=== PATIENT | female | born 1975 | race African-American/Black ===

== ENCOUNTER 2018-07-22 21:27 | Emergency (ER) | payer BC ==
[~2018-07-22] VITALS: Ht 165.1 cm; Wt 77.1 kg
[2018-07-22 21:50] VITALS: BP 122/84
[2018-07-22] MEDS ORDERED: BENADRYL25 MG ORAL (22:00)
[2018-07-22] MEDS ORDERED: HYDROCORTISONE-30 GM TOPIC (22:00)
--- NOTE | 2018-07-22 22:01 | Emergency Room Report ---
History of Present Illness General Chief Complaint: Skin Rash/Abscess Source: Patient Present Illness HPI Is a 43-year-old female with no past medical history. She presents with chief complaint of bedbug bites. She went to a [employer]ism retreat on Friday in the next day woke up with bites on her body and head. Her daughter had the same problem. She is able to film some of the bugs. Itching in nature. Worse with scratching. No fever chills. no nausea no vomiting. No other complaint. No drainage Allergies: Coded Allergies: No Known Allergies (Unverified , 07/22/18) Patient History Past Medical History: none, see triage record, old chart reviewed Past Surgical History: none Pertinent Family History: none Social History: Denies: smoking Last Menstrual Period: 07/17/2018 Now: No : 3 Para: 2 Immunizations: other Reviewed Nursing Documentation: PMH: Agreed; PSxH: Agreed Nursing Documentation-PMH Past Medical History: No Stated History Review of Systems Eye: Denies: eye pain, blurred vision ENT: Denies: ear pain, nose congestion, throat swelling Respiratory: Denies: cough, shortness of breath Cardiovascular: Denies: chest pain, palpitations Gastrointestinal: Denies: abdominal pain, diarrhea, nausea, vomiting Musculoskeletal: Denies: back pain, joint pain Skin: Reports: rash Neurological: Denies: headache, numbness Endocrine: Denies: increased thirst, increased urine Hematologic/Lymphatic: Denies: easy bruising All Other Systems: negative except mentioned in HPI Physical Exam Vital Signs Date Time Temp Pulse Resp B/P (MAP) Pulse Ox O2 Delivery O2 Flow Rate FiO2 07/22/18 21:44 98.5 61 16 122/84 95 Room Air 98.4 vitals inder Sp02 EP Interpretation: reviewed, normal General Appearance: well appearing, no apparent distress, alert Head: normocephalic, atraumatic Eyes: bilateral eye PERRL, bilateral eye EOMI ENT: hearing grossly normal, normal pharynx Neck: full range of motion, supple, no meningismus Respiratory: chest non-tender, lungs clear, normal breath sounds Cardiovascular #1: regular rate, rhythm, no murmur Gastrointestinal: normal bowel sounds, non tender, no mass, no organomegaly, no bruit, non-distended Musculoskeletal: back normal, gait/station normal, normal range of motion Neurologic: alert, oriented x3 Psychiatric: mood/affect normal Skin: warm/dry, other - Scattered oval 1 cm rash mostly on arms and back of neck. No drainage. No fever. Medical Decision Making Diagnostic Impression: Primary Impression: Bedbug bite Qualified Codes: W57.XXXA - Bitten or stung by nonvenomous insect and other nonvenomous arthropods, initial encounter ER Course Patient with bedbug bites. No infection. No abscess. We'll discharge home. Last Vital Signs Date Time Temp Pulse Resp B/P (MAP) Pulse Ox O2 Delivery O2 Flow Rate FiO2 07/22/18 21:44 98.5 61 16 122/84 95 Room Air 98.4 Status: unchanged Disposition: HOME, SELF-CARE Condition: Stable Scripts Hydrocortisone/Aloe Vera 1%* (HYDROCORTISONE-ALOE 1% CREAM*) Y Cr 1 APPLIC TOPIC Q6H PRN for Itching, #30 GM Prov: Rishi Otero MD 07/22/18 Diphenhydramine Hcl* (BENADRYL*) 25 Mg Capsule 50 MG ORAL Q6H PRN for Itching, #30 CAP Prov: Rishi Otero MD 07/22/18 Additional Instructions: Follow-up with in 7 days. Return if worse. Rishi Otero MD Jul 22, 2018 22:01
[2018-07-22 22:10] VITALS: BP 122/84
== END 2018-07-22 22:10 | disposition home or self-care (01) ==
LOC: EMR 21:50
DX: S40.862A Insect bite (nonvenomous) of left upper arm, initial encounter (principal); S40.861A Insect bite (nonvenomous) of right upper arm, initial encounter; S20.469A Insect bite (nonvenomous) of unspecified back wall of thorax, initial encounter; S10.96XA Insect bite of unspecified part of neck, initial encounter; W57.XXXA Bitten or stung by nonvenomous insect and other nonvenomous arthropods, initial encounter; Y93.89 Activity, other specified; Y92.89 Other specified places as the place of occurrence of the external cause
CPT/HCPCS: 99283

== ENCOUNTER 2018-08-07 10:24 | Emergency (ER) | payer BC, OTHER ==
[~2018-08-07] VITALS: Ht 165.1 cm; Wt 77.1 kg
[~2018-08-07 10:24] MED LIST: BENADRYL25 MG ORAL; HYDROCORTISONE-30 GM TOPIC
[2018-08-07] MEDS ORDERED: NKM (10:30)
[2018-08-07 10:36] VITALS: BP 121/65
--- NOTE | 2018-08-07 11:42 | Emergency Room Report ---
History of Present Illness General Chief Complaint: Dyspnea/Respdistress Source: Patient Present Illness HPI 43-year-old female presents with cough which was initial we productive of green sputum now just clearish,'s for one week. She also reports facial pain, nasal discharge, again this is clears discharge, denies blurred vision fever, severe headaches, ear pain, sore throat Allergies: Coded Allergies: No Known Allergies (Unverified , 07/22/18) Patient History Past Medical History: see triage record Now: No Reviewed Nursing Documentation: PMH: Agreed; PSxH: Agreed Nursing Documentation-PMH Past Medical History: No Stated History Review of Systems Constitutional: Denies: fever Eye: Denies: acuity changes Respiratory: Denies: cough, shortness of breath Cardiovascular: Denies: chest pain Gastrointestinal: Denies: nausea, vomiting Skin: Denies: rash Neurological: Denies: headache Physical Exam Vital Signs Date Time Temp Pulse Resp B/P (MAP) Pulse Ox O2 Delivery O2 Flow Rate FiO2 08/07/18 10:36 77 18 Room Air 08/07/18 10:36 98.4 121/65 100 General Appearance: well appearing, no apparent distress Head: normocephalic, atraumatic Eyes: left eye PERRL, left eye EOMI ENT: normal ENT inspection, hearing grossly normal, normal pharynx, no angioedema, normal voice, uvula midline, moist mucus membranes, nasal congestion Neck: full range of motion, supple Respiratory: chest non-tender, lungs clear, normal breath sounds, no rhonchi, no respiratory distress, no retraction, no accessory muscle use, no wheezing, speaking full sentences Cardiovascular #1: normal peripheral pulses, regular rate, rhythm, no edema, no gallop, no murmur, no rub Gastrointestinal: non tender, soft, no mass Musculoskeletal: no calf tenderness Neurologic: alert, meat lugger III-XII nml as tested, motor strength/tone normal, sensory intact, normal gait Psychiatric: mood/affect normal Skin: no rash Medical Decision Making Diagnostic Impression: Primary Impression: Bronchitis ER Course Patient bronchitis or mild sinusitis, some spectrum upper respiratory infection , chest x-ray normal, examination also rather unremarkable with no boggy sinus tenderness, just mild clearish rhinorrhea, will discharge with prescription for Nasonex Chest X-Ray Diagnostic Results Chest X-Ray Diagnostic Results : Chest X-Ray Ordered: Yes # of Views/Limited/Complete: 2 View Indication: Other - cough EP Interpretation: Yes Interpretation: no consolidation, no effusion, no pneumothorax, no acute cardiopulmonary disease Impression: No acute disease Electronically Signed by: Cristiane Curtis MD Last Vital Signs Date Time Temp Pulse Resp B/P (MAP) Pulse Ox O2 Delivery O2 Flow Rate FiO2 08/07/18 10:36 98.4 77 18 121/65 100 Room Air Disposition: HOME, SELF-CARE Condition: Stable Patient Instructions: Acute Bronchitis, [id number] CRISTIANE CURTIS M.D Aug 07, 2018 11:42
[2018-08-07] MEDS ORDERED: NASONEX17 GM NASAL (11:43)
--- NOTE | 2018-08-07 11:56 | Diagnostic Imaging Report ---
Indication: Cough Comparison: None 2 views of the chest obtained. Findings: Cardiomediastinal silhouette and pulmonary vascularity are within normal limits for age. The diaphragmatic contour is smooth and costophrenic angles are sharp. No pleural effusions are identified. The bones are unremarkable. Impression: No acute disease
[2018-08-07 12:30] VITALS: BP 128/76
== END 2018-08-07 12:30 | disposition home or self-care (01) ==
LOC: EMR 10:44
DX: J40 Bronchitis, not specified as acute or chronic (principal)
CPT/HCPCS: 71046; 99283